=== PATIENT | female | born 1960 | race Caucasian/White ===

== ENCOUNTER → 2016-07-31 | Outpatient (CLI) | payer OTHER ==
[~2016-07-31] MED LIST: DICL50TA4 PO; THYR15TA PO
--- OUTSIDE RECORDS SUMMARY | 2016-07-31 12:24 | XMS REPORT | Continuity of Care Document ---
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 Visit Date/Time Discharge Status Pt. Type Provider Facility Loc./Unit Complaint [id number] 12/24/2013 13:19:00 2013 23:59:59 CLS Outpatient KOLTON BALLARD MD [facility] RAD [id number] 04/21/2013 09:32:00 2012 23:59:59 CLS Outpatient BEINTA NARANJO MD [facility] RAD [id number] 04/16/2013 07:33:00 2012 11:15:00 DIS Outpatient BENITA NARANJO MD [facility] [id number] 04/15/2013 07:16:00 2012 23:59:59 CLS Outpatient [id number] 10/25/2015 11:53:00 ACT Outpatient JON FAITH [facility] [id number] 10/23/2015 07:44:00 Document Registration
--- NOTE | 2016-07-31 13:20 | Diagnostic Imaging Report ---
CHEST PA/LAT (2 VIEW) Indication: Chest pain Comparison: 11/01/2008 Findings: No focal pneumonic consolidation, pleural effusion or pneumothorax. Normal heart size and pulmonary vasculature. Impression: No acute cardiopulmonary process. Dictated by: Dictated on workstation # [id number]
== END ==
LOC: RAD 12:21
PROVIDERS: ATTEND Internal Medicine
DX: R07.9 Chest pain, unspecified (principal)
CPT/HCPCS: 71020

== ENCOUNTER 2016-08-03 20:00 | Emergency (ER) | payer OTHER ==
[~2016-08-03] VITALS: Ht 167.6 cm; Wt 61.2 kg
[~2016-08-03 20:00] MED LIST changes: -DICL50TA4 PO
--- OUTSIDE RECORDS SUMMARY | 2016-08-03 20:06 | XMS REPORT | Continuity of Care Document ---
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 Visit Date/Time Discharge Status Pt. Type Provider Facility Loc./Unit Complaint [id number] 12/24/2013 13:19:00 2013 23:59:59 CLS Outpatient KOLTON BALLARD MD [facility] RAD [id number] 04/21/2013 09:32:00 2012 23:59:59 CLS Outpatient BENITA NARANJO MD [facility] RAD [id number] 04/16/2013 07:33:00 2012 11:15:00 DIS Outpatient BENITA NARANJO MD [facility] [id number] 04/15/2013 07:16:00 2012 23:59:59 CLS Outpatient [id number] 07/31/2016 12:21:00 ACT Outpatient LIBBY FAITH DO [facility] RAD R07.9 [id number] 10/25/2015 11:53:00 ACT Outpatient JON FAITH [facility] RAD THYROMEGALY E01.10 [id number] 10/23/2015 07:44:00 Document Registration
--- NOTE | 2016-08-03 20:13 | ED Chest Pain ---
General Chief Complaint: Chest Pain Stated Complaint: CHEST PAIN Source: patient, RN notes reviewed Exam Limitations: no limitations History of Present Illness Time seen by provider: 20:13 Initial Comments Intermittent episodes of substernal chest pain that radiates to her left shoulder x 1 week. Saw PCP regarding episodes and had an EKG and CXR done but never heard anything back regarding either. Denies any SOA, N/V, or diaphoresis. Does describe palpitations. Timing/Duration: 1 week, intermittent Severity/Quality: moderate, aching Location: substernal Radiation: shoulders (left) Activities at Onset: none Prior CP/Workup: no prior cardiac workup Modifying Factors: improves with other (none) ASA po COMMERCIAL PARTS PROFESSIONAL: No NTG SL COMMERCIAL PARTS PROFESSIONAL: No Associated Symptoms: denies symptoms Allergies and Home Medications Allergies Coded Allergies: No Known Drug Allergies (Verified , 11/02/08) Home Medications Diclofenac Potassium 50 Mg Tablet #30 50 MG PO Q8H PRN PRN chest pain Prescribed by: LIBBY ALAS on 08/03/16 8802 Thyroid,Pork 15 Mg Tablet 15 MG PO DAILY (Reported) Review of Systems Constitutional: see HPI Cardiovascular: See HPI Chest Pain Palpitations All Other Systems Reviewed Negative Unless Noted: Yes (Negative excepted noted.) Past Drfqall-Paukyr-Csiqrd Hx Respiratory Hx Respiratory Disorders: No Cardiovascular Hx Cardiac Disorders: No Gastrointestinal Hx Gastrointestinal Disorders: No Musculoskeletal Hx Musculoskeletal Disorders: No Endocrine Hx Endocrine Disorders: Yes Physical Exam Vital Signs Capillary Refill : General Appearance: WD/WN Anxious HEENT: Normal ENT Inspection Neck: Normal Inspection Respiratory: Lungs Clear No Respiratory Distress Cardiovascular: Tachycardia Other ((+) tenderness c/ palpation over the patient's ACW. Findings are consistent c/ Costochondritis.) Rectal: Deferred Neurologic/Psychiatric: Alert Oriented x3 No Motor/Sensory Deficits Other ( anxious/tearful) Skin: Warm/Dry Progress/Results/Core Measures Results/Orders Lab Results Laboratory Tests Test 08/03/16 20:00 08/03/16 20:35 Range/Units Alanine Aminotransferase (ALT/SGPT) 17 0-55 U/L Albumin 3.7 3.2-4.5 G/DL Alkaline Phosphatase 57 40-136 U/L Anion Gap 12 5-14 MMOL/L Aspartate Amino Transf (AST/SGOT) 25 5-34 U/L B-Type Natriuretic Peptide 41.9 <100.0 PG/ML BUN/Creatinine Ratio 19 Basophils # (Auto) 0.0 0.0-0.1 10^3/uL Basophils (%) (Auto) 0 0-10 % Blood Urea Nitrogen 14 7-18 MG/DL Calcium Level 8.2 L 8.5-10.1 MG/DL Carbon Dioxide Level 19 L 21-32 MMOL/L Chloride Level 108 H 98-107 MMOL/L Creatinine 0.72 0.60-1.30 MG/DL D-Dimer 1.10 H 0.00-0.49 UG/ML Eosinophils # (Auto) 0.3 0.0-0.3 10^3/uL Eosinophils (%) (Auto) 3 0-10 % Estimat Glomerular Filtration Rate > 60 Glucose Level 85 70-105 MG/DL Hematocrit 38 35-52 % Hemoglobin 12.4 11.5-16.0 G/DL Lipase 29 8-78 U/L Lymphocytes # (Auto) 3.6 1.0-4.0 X 10^3 Lymphocytes (%) (Auto) 35 12-44 % Magnesium Level 2.4 1.8-2.4 MG/DL Mean Corpuscular Hemoglobin 31 25-34 PG Mean Corpuscular Hemoglobin Concent 33 32-36 G/DL Mean Corpuscular Volume 93 80-99 FL Mean Platelet Volume 11.4 H 7.4-10.4 FL Monocytes # (Auto) 1.0 0.0-1.0 X 10^3 Monocytes (%) (Auto) 10 0-12 % Neutrophils # (Auto) 5.4 1.8-7.8 X 10^3 Neutrophils (%) (Auto) 53 42-75 % Platelet Count 335 130-400 10^3/uL Potassium Level 3.4 L 3.6-5.0 MMOL/L Red Blood Count 4.06 L 4.35-5.85 10^6/uL Red Cell Distribution Width 12.5 10.0-14.5 % Sodium Level 139 135-145 MMOL/L Thyroid Stimulating Hormone (TSH) 2.13 0.35-4.94 UIU/ML Total Bilirubin 0.4 0.1-1.0 MG/DL Total Protein 7.0 6.4-8.2 G/DL Troponin I < 0.30 <0.30 NG/ML White Blood Count 10.3 4.3-11.0 10^3/uL Ur Tricyclic Antidepressants Screen NEGATIVE NEGATIVE Urine Amphetamines Screen NEGATIVE NEGATIVE Urine Bacteria FEW H /HPF Urine Barbiturates Screen NEGATIVE NEGATIVE Urine Benzodiazepines Screen NEGATIVE NEGATIVE Urine Bilirubin NEGATIVE NEGATIVE Urine Cannabinoids Screen NEGATIVE NEGATIVE Urine Casts NONE /LPF Urine Clarity VERY CLOUDY H Urine Cocaine Screen NEGATIVE NEGATIVE Urine Color YELLOW Urine Crystals NONE /LPF Urine Culture Indicated NO Urine Glucose (UA) NEGATIVE NEGATIVE Urine Ketones 3+ H NEGATIVE Urine Leukocyte Esterase NEGATIVE NEGATIVE Urine Methadone Screen NEGATIVE NEGATIVE Urine Methamphetamines Screen NEGATIVE NEGATIVE Urine Mucus NEGATIVE /LPF Urine Nitrite NEGATIVE NEGATIVE Urine Opiates Screen NEGATIVE NEGATIVE Urine Oxycodone Screen NEGATIVE NEGATIVE Urine Phencyclidine Screen NEGATIVE NEGATIVE Urine Propoxyphene Screen NEGATIVE NEGATIVE Urine Protein 2+ H NEGATIVE Urine RBC >100 H /HPF Urine RBC (Auto) 5+ H NEGATIVE Urine Specific [place] 1.020 1.016-1.022 Urine Squamous Epithelial Cells 0-2 /HPF Urine Urobilinogen NORMAL NORMAL MG/DL Urine WBC RARE /HPF Urine pH 6 5-9 My Orders Orders-LIBBY ALAS DO Saline Lock/Iv-Start (08/03/16 20:13) Ekg Tracing (08/03/16 20:13) BNP (08/03/16 20:13) Cbc With Automated Diff (08/03/16 20:13) Comprehensive Metabolic Panel (08/03/16 20:13) Fibrin Degradation Products (08/03/16 20:13) Drug Screen Stat (Urine) (08/03/16 20:13) Lipase (08/03/16 20:13) Magnesium (08/03/16 20:13) Troponin I (08/03/16 20:13) Ua Culture If Indicated (08/03/16 20:13) Chest 1 View, Ap/Pa Only (08/03/16 20:13) Aspirin Chewable Tablet (Baby Aspirin Ch (08/03/16 20:15) Thyroid Stimulating Hormone (08/03/16 20:16) Ct Angio Chest W (08/03/16 21:19) Iohexol Injection (Omnipaque 350 Mg/Ml 1 (08/03/16 21:30) Ns (Ivpb) (Sodium Chloride 0.9% Ivpb Bag (08/03/16 21:30) Dexamethasone Pf Injection (Decadron Pf (08/03/16 23:00) Ketorolac Injection (Toradol Injection) (08/03/16 23:00) Iv Push Disposal Operator Ed (08/03/16 ) Medications Given in ED Vital Signs/I&O ECG Initial ECG Impression Date: Aug 03, 2016 Initial ECG Impression Time: 20:12 Initial ECG Rate: 90 Initial ECG Rhythm: Normal Sinus Initial ECG Intervals: Normal Initial ECG Impression: Normal Initial ECG Comparisson: No Previous ECG Available Diagnostic Imaging Diagonstic Imaging: Xray, CT Plain Films/CT/US/NM/MRI: chest (nothing acute) Departure Impression Impression: Primary Impression: Anterior chest wall pain Additional Impression: Costochondritis, acute Disposition: HOME, SELF-CARE Condition: Stable Departure-Patient Inst. Decision time for Depature: 22:55 Referrals: LIBBY FAITH DO (PCP/Family) Primary Care Physician Patient Instructions: Costochondritis (DC) Scripts Diclofenac Potassium 50 Mg [id number] Mg PO Q8H PRN chest pain #30 TAB Ref 0 Prov:LIBBY ALAS DO 08/03/16 LIBBY ALAS DO Aug 03, 2016 20:13 Initial ECG Rhythm: Normal Sinus Initial ECG Intervals: Normal Initial ECG Impression: Normal Initial ECG Comparisson: No Previous ECG Available Departure Impression Impression: Primary Impression: Anterior chest wall pain Additional Impression: Costochondritis, acute Disposition: HOME, SELF-CARE Condition: Stable Departure-Patient Inst. Decision time for Depature: 22:55 Referrals: LIBBY FAITH DO (PCP/Family) Primary Care Physician Patient Instructions: Costochondritis (DC) Scripts Diclofenac Potassium 50 Mg [id number] Mg PO Q8H PRN chest pain #30 TAB Ref 0 Prov:LIBBY ALAS DO 08/03/16 LIBBY ALAS DO Aug 03, 2016 20:13
[2016-08-03] MEDS ORDERED: ASPIRIN 81 MG CHEW (CHILDREN'S ASA) PO ONE (20:15)
[2016-08-03 20:42] LABS: BASOPHILS % (AUTO) 0 % (0-10); EOSINOPHILS # (AUTO) 0.3 10^3/uL (0.0-0.3); EOSINOPHILS % (AUTO) 3 % (0-10); LYMPHOCYTES # (AUTO) 3.6 X 10^3 (1.0-4.0); LYMPHOCYTES % (AUTO) 35 % (12-44); MEAN CORPUSCULAR HEMOGLOBIN 31 PG (25-34); MEAN CORPUSCULAR HGB CONC 33 G/DL (32-36); MEAN CORPUSCULAR VOLUME 93 FL (80-99); MEAN PLATELET VOLUME 11.4 FL (7.4-10.4); MONOCYTES % (AUTO) 10 % (0-12); NEUTROPHILS # (AUTO) 5.4 X 10^3 (1.8-7.8); NEUTROPHILS % (AUTO) 53 % (42-75); PLATELET COUNT 335 10^3/uL (130-400); RED BLOOD COUNT 4.06 10^6/uL (4.35-5.85); RED CELL DISTRIBUTION WIDTH 12.5 % (10.0-14.5); WHITE BLOOD COUNT 10.3 10^3/uL (4.3-11.0)
[2016-08-03 20:42] LABS: BILIRUBIN,URINE NEGATIVE (NEGATIVE); KETONES,URINE 3+ (NEGATIVE); LEUKOCYTE ESTERASE ,URINE NEGATIVE (NEGATIVE); NITRITE,URINE NEGATIVE (NEGATIVE); PH,URINE 6 (5-9); PROTEIN,URINE 2+ (NEGATIVE); UROBILINOGEN,URINE NORMAL (NORMAL)
[2016-08-03 20:52] LABS: SQUAMOUS EPITHELIAL CELL,UR 0-2 /HPF; WBC,URINE RARE /HPF
[2016-08-03 20:54] LABS: ALANINE AMINOTRANSFERASE 17 U/L (0-55); ALBUMIN 3.7 G/DL (3.2-4.5); ANION GAP 12 MMOL/L (5-14); ASPARTATE AMINO TRANSFERASE 25 U/L (5-34); BILIRUBIN,TOTAL 0.4 MG/DL (0.1-1.0); BLOOD UREA NITROGEN 14 MG/DL (7-18); BUN/CREATININE RATIO 19; CALCIUM 8.2 MG/DL (8.5-10.1); CARBON DIOXIDE 19 MMOL/L (21-32); CHLORIDE 108 MMOL/L (98-107); CREATININE SERUM 0.72 MG/DL (0.60-1.30); GFR ESTIMATED > 60; GLUCOSE 85 MG/DL (70-105); LIPASE 29 U/L (8-78); MAGNESIUM 2.4 MG/DL (1.8-2.4); POTASSIUM 3.4 MMOL/L (3.6-5.0); SODIUM 139 MMOL/L (135-145)
--- NOTE | 2016-08-03 21:06 | Diagnostic Imaging Report ---
INDICATION: Chest pain Frontal chest obtained at 8:45 p.m. Heart and mediastinal silhouette are normal in appearance. The lungs are clear. There is no pneumothorax or pleural fluid. IMPRESSION: Negative chest. Dictated by: Dictated on workstation # [id number]
[2016-08-03] MEDS ORDERED: IOHEXOL 350 MG/ML 150 ML (OMNIPAQUE 350) VIAL IV ONE (21:30)
[2016-08-03] MEDS ORDERED: NS 100 ML (IVPB) BAG IV ONE (21:30)
[2016-08-03 21:31] LABS: THYROID STIMULATING HORMONE 2.13 UIU/ML (0.35-4.94); TROPONIN I < 0.30 NG/ML (<0.30)
[2016-08-03] MEDS ORDERED: DICL50TA4 PO (22:56)
[2016-08-03] MEDS ORDERED: DEXAMETHASONE PF 10 MG/ML (DECADRON) VIAL IV ONE (23:00)
[2016-08-03] MEDS ORDERED: KETOROLAC 30 MG/ML VIAL IVP ONE (23:00)
[2016-08-03 23:14] VITALS: BP 136/74
--- NOTE | 2016-08-04 07:48 | Diagnostic Imaging Report ---
PROCEDURE: CT angiography of the chest with contrast. TECHNIQUE: Multiple contiguous axial images were obtained through the chest after uneventful bolus administration of intravenous contrast. Reconstructed CTA MIP acquisitions were also performed. INDICATION: Chest pain and pressure. FINDINGS: The heart size is normal. There is no pleural or pericardial fluid. There is no pneumothorax. There is no pathologically enlarged adenopathy in the chest. The pulmonary vascularity is normal in caliber without evidence of dissection. There are no filling defects seen within the pulmonary arteries to suggest pulmonary embolism. There is minimal scar or atelectasis in lung bases. The visualized intraabdominal structures are unremarkable. There are mild degenerative changes in the spine. IMPRESSION: No acute abnormality of the chest. Specifically, there is no evidence of pulmonary embolism or aortic dissection. Minimal scarring or atelectasis in lung bases bilaterally. Also, there is also a few tiny noncalcified nodular densities measuring 2-3 mm. This likely reflects granulomatous disease although early neoplasm cannot be entirely excluded. Recommend short interval followup CT in 2-3 months to insure stability. Dictated by: Dictated on workstation # [id number]
== END 2016-08-03 23:14 | disposition home or self-care (01) ==
LOC: EDUNIT# 20:00 → ER 20:02
DX: M94.0 Chondrocostal junction syndrome [Tietze] (principal)
CPT/HCPCS: 36415; 71010; 71275; 80053; 80306; 81000; 83690; 83735; 83880; 84443; 84484; 85025; 85379; 93005; 96374; 96375

== ENCOUNTER → 2016-08-09 | Outpatient (CLI) | payer OTHER ==
[~2016-08-09] MED LIST changes: +DICL50TA4 PO
--- OUTSIDE RECORDS SUMMARY | 2016-08-09 07:11 | XMS REPORT | Continuity of Care Document ---
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 10/23/2015 ELIO RUIZ, KOLTON Kunz Ot 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.9 UTERINE LEIOMYOMA NOS 10/26/2015 JON FAITH MECHATRONICS TECHNOLOGIST Ot 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 10/26/2015 JON FAITH MECHATRONICS TECHNOLOGIST Ot 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 11/09/2015 JON FAITH MECHATRONICS TECHNOLOGIST Ot 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 07/31/2016 JON FAITH MECHATRONICS TECHNOLOGIST Ot 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 08/01/2016 LIBBY FAITH DO Ot R07.9 CHEST PAIN, UNSPECIFIED 08/03/2016 JON FAITH MECHATRONICS TECHNOLOGIST Ot 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 08/03/2016 LIBBY FAITH DO Ot R07.9 CHEST PAIN, UNSPECIFIED 08/05/2016 LIBBY ALAS DO Ot M94.0 CHONDROCOSTAL JUNCTION SYNDROME [TIETZE] 08/05/2016 LIBBY ALAS DO Ot R07.89 OTHER CHEST PAIN 08/06/2016 LIBBY ALAS DO Ot M94.0 CHONDROCOSTAL JUNCTION SYNDROME [TIETZE] 08/06/2016 LIBBY ALAS DO Ot R07.89 OTHER CHEST PAIN Procedures Results Test Result Range Complete blood count (CBC) with automated white blood cell (WBC) differential - 08/03/16 20:00 Blood leukocytes automated count (number/volume) 10.3 10*3/ uL 4.3-11.0 Blood erythrocytes automated count (number/volume) 4.06 10*6 /uL 4.35-5.85 Venous blood hemoglobin measurement (mass/volume) 12.4 g/dL 11.5-16.0 Blood hematocrit (volume fraction) 38 % 35-52 Automated erythrocyte mean corpuscular volume 93 [foz_us] 80-99 Automated erythrocyte mean corpuscular hemoglobin (mass per erythrocyte) 31 pg 25-34 Automated erythrocyte mean corpuscular hemoglobin concentration measurement ( mass/volume) 33 g/dL 32-36 Automated erythrocyte distribution width ratio 12.5 % 10.0-14.5 Automated blood platelet count (count/volume) 335 10*3/uL 130-400 Automated blood platelet mean volume measurement 11.4 [foz_ us] 7.4-10.4 Automated blood neutrophils/100 leukocytes 53 % 42-75 Automated blood lymphocytes/100 leukocytes 35 % 12-44 Blood monocytes/100 leukocytes 10 % 0-12 Automated blood eosinophils/100 leukocytes 3 % 0-10 Automated blood basophils/100 leukocytes 0 % 0-10 Blood neutrophils automated count (number/volume) 5.4 10*3 1.8-7.8 Blood lymphocytes automated count (number/volume) 3.6 10*3 1.0-4.0 Blood monocytes automated count (number/volume) 1.0 10*3 0.0-1.0 Automated eosinophil count 0.3 10*3/uL 0.0-0.3 Automated blood basophil count (count/volume) 0.0 10*3/uL 0.0-0.1 Fibrin D-dimer FEU measurement in platelet poor plasma (mass/volume) - 20:00 Fibrin D-dimer FEU measurement in platelet poor plasma (mass/volume) 1.10 ug/mL 0.00-0.49 Comprehensive metabolic panel - 08/03/16 20:00 Serum or plasma sodium measurement (moles/volume) 139 mmol/ L 135-145 Serum or plasma potassium measurement (moles/volume) 3.4 mmol/L 3.6-5.0 Serum or plasma chloride measurement (moles/volume) 108 mmol /L 98-107 Carbon dioxide 19 mmol/L 21-32 Serum or plasma anion gap determination (moles/volume) 12 mmol/L 5-14 Serum or plasma urea nitrogen measurement (mass/volume) 14 mg/dL 7-18 Serum or plasma creatinine measurement (mass/volume) 0.72 mg /dL 0.60-1.30 Serum or plasma urea nitrogen/creatinine mass ratio 19 NRG Serum or plasma creatinine measurement with calculation of estimated glomerular filtration rate > NRG Serum or plasma glucose measurement (mass/volume) 85 mg/dL 70-105 Serum or plasma calcium measurement (mass/volume) 8.2 mg/dL 8.5-10.1 Serum or plasma total bilirubin measurement (mass/volume) 0.4 mg/dL 0.1-1.0 Serum or plasma alkaline phosphatase measurement (enzymatic activity/volume) 57 U/L 40-136 Serum or plasma aspartate aminotransferase measurement (enzymatic activity/ volume) 25 U/L 5-34 Serum or plasma alanine aminotransferase measurement (enzymatic activity/volume ) 17 U/L 0-55 Serum or plasma protein measurement (mass/volume) 7.0 g/dL 6.4-8.2 Serum or plasma albumin measurement (mass/volume) 3.7 g/dL 3.2-4.5 Magnesium - 08/03/16 20:00 Magnesium 2.4 mg/dL 1.8-2.4 Serum or plasma troponin i.cardiac measurement (mass/volume) - 08/03/16 20:00 Serum or plasma troponin i.cardiac measurement (mass/volume) < ng/mL <0.30 Serum or plasma lithium measurement (moles/volume) - 08/03/16 20:00 BNP level 41.9 pg/mL <100.0 Lipase - 08/03/16 20:00 Lipase 29 U/L 8-78 THYROID STIMULATING HORMONE - 08/03/16 20:00 THYROID STIMULATING HORMONE 2.13 u[iU]/mL 0.35-4.94 Complete urinalysis with reflex to culture - 08/03/16 20:35 Urine color determination YELLOW NRG Urine clarity determination VERY CLOUDY NRG Urine pH measurement by test strip 6 5- 9 Specific gravity of urine by test strip 1.020 1.016-1.022 Urine protein assay by test strip, semi-quantitative 2+ NEGATIVE Urine glucose detection by automated test strip NEGATIVE NEGATIVE Erythrocytes detection in urine sediment by light microscopy 5+ NEGATIVE Urine ketones detection by automated test strip 3+ NEGATIVE Urine nitrite detection by test strip NEGATIVE NEGATIVE Urine total bilirubin detection by test strip NEGATIVE NEGATIVE Urine urobilinogen measurement by automated test strip (mass/volume) NORMAL NORMAL Urine leukocyte esterase detection by dipstick NEGATIVE NEGATIVE Automated urine sediment erythrocyte count by microscopy (number/high power field) > [HPF] NRG Automated urine sediment leukocyte count by microscopy (number/high power field ) RARE NRG Bacteria detection in urine sediment by light microscopy FEW NRG Squamous epithelial cells detection in urine sediment by light microscopy 0-2 NRG Crystals detection in urine sediment by light microscopy NONE NRG Casts detection in urine sediment by light microscopy NONE NRG Mucus detection in urine sediment by light microscopy NEGATIVE NRG Complete urinalysis with reflex to culture NO NRG Urine drug screening test - 08/03/16 20:35 Urine phencyclidine detection by screening method NEGATIVE NEGATIVE Urine benzodiazepines detection by screening method NEGATIVE NEGATIVE Urine cocaine detection NEGATIVE NEGATIVE Urine amphetamines detection by screening method NEGATIVE NEGATIVE Urine methamphetamine detection by screening method NEGATIVE NEGATIVE Urine cannabinoids detection by screening method NEGATIVE NEGATIVE Urine opiates detection by screening method NEGATIVE NEGATIVE Urine barbiturates detection NEGATIVE NEGATIVE Screening urine tricyclic antidepressants detection NEGATIVE NEGATIVE Urine methadone detection by screening method NEGATIVE NEGATIVE Urine oxycodone detection NEGATIVE NEGATIVE Urine propoxyphene detection NEGATIVE NEGATIVE Encounters ACCT No. Visit Date/Time Discharge Status Pt. Type Provider Facility Loc./Unit Complaint [id number] 08/03/2016 20:02:00 2016 23:14:00 DIS Outpatient LIBBY ALAS DO [facility] ER CHEST PAIN [id number] 12/24/2013 13:19:00 2013 23:59:59 CLS Outpatient KOLTON BALLARD MD [facility] RAD [id number] 04/21/2013 09:32:00 2012 23:59:59 CLS Outpatient BENITA NARANJO MD [facility] RAD [id number] 04/16/2013 07:33:00 2012 11:15:00 DIS Outpatient BENITA NARANJO MD [facility] [id number] 04/15/2013 07:16:00 2012 23:59:59 CLS Outpatient [id number] 07/31/2016 12:21:00 ACT Outpatient LIBBY FAITH DO [facility] RAD R07.9 [id number] 10/25/2015 11:53:00 ACT Outpatient JON FAITH [facility] RAD THYROMEGALY E01.10 [id number] 10/23/2015 07:44:00 Document Registration
[2016-08-09] MEDS: CATHETER FLUSH 10 ML SYR IV PRN (07:25)
[2016-08-09 08:05] VITALS: BP 153/96
[2016-08-09 08:09] VITALS: BP 174/87
--- NOTE | 2016-08-09 13:53 | STRESS TEST ---
PROCEDURE PHYSICIAN: TAWNYA LAROSE DATE OF PROCEDURE: 08/09/2016 NUCLEAR MYOVIEW REPORT: REFERRING PHYSICIAN: Dr. Mcdonnell IN SUMMARY: The patient was injected with 10.84 mCi of technetium 99 Myoview and the resting images were obtained. Then the patient received 32.5 mCi of technetium 99 Myoview and the stress images were obtained. The resting and stress images were compared and reviewed in the short axis, horizontal long axis, and vertical long axis views. The stress test was supervised by Dr. Mcdonnell. Review of the images showed no significant ischemia or infarction on SPECT images. SSS is 0. TID value 0.85. On the gated images, the left ventricle appeared to be normal size with normal contractility. Calculated ejection fraction 64%. IN CONCLUSION: 1. The patient tolerated Lexiscan well. 2. No ischemia or infarction on SPECT images. 3. Normal left ventricular size with normal contractility. Calculated ejection fraction 64%. Job ID: [id number] Dictated Date: 08/09/2016 11:19:34 Aged Or Disabled Carer Date: 08/09/2016 13:50:49 / suzie
== END ==
LOC: CARD 07:07
PROVIDERS: ATTEND Internal Medicine
DX: R07.9 Chest pain, unspecified (principal)
CPT/HCPCS: 78452; 93017

== ENCOUNTER → 2018-04-08 | Outpatient (CLI) | payer OTHER ==
[~2018-04-08] MED LIST changes: +GADOBUTROL 7.5 MMOL/7.5 ML (GADAVIST) VIAL IV ONE
--- NOTE | 2018-04-08 11:11 | Diagnostic Imaging Report ---
PROCEDURE: MR imaging of the brain with and without contrast. TECHNIQUE: Multiplanar, multisequence MR imaging of the brain was performed with and without contrast. INDICATION: Headache and dizziness and eye pain. COMPARISON: Correlation is made with prior MRI of the brain from 11/22/2008. FINDINGS: Ventricular size and sulcal pattern are stable. A small white matter focus adjacent to the right frontal horn appears stable. There is an additional tiny focus slightly anterolateral to this focus measuring 3 mm. There are several additional subcortical white matter signal abnormalities present on today's study. Findings are likely on the basis of chronic microvascular ischemia. There is no diffusion restriction. Normal expected flow-voids within the carotid siphons are seen. No acute intra-axial or extra-axial hemorrhage is seen. No abnormal enhancement is seen following contrast administration. Corpus callosum is unremarkable. The sella and parasellar structures are unremarkable. IMPRESSION: There has been some mild increase in subcortical and periventricular white matter foci since examination from 9 years earlier. This is likely on the basis of chronic microvascular ischemia. The remainder of the study is unremarkable. No acute abnormalities detected. Dictated by: Dictated on workstation # [id number]
== END ==
LOC: RAD 09:17
PROVIDERS: ATTEND Nurse Practitioner Family
DX: H53.9 Unspecified visual disturbance (principal); R42 Dizziness and giddiness; R51 Headache; R90.82 White matter disease, unspecified
CPT/HCPCS: 70553

== ENCOUNTER 2020-08-22 13:37 | Outpatient (CLI) | payer OTHER ==
[~2020-08-22] VITALS: Ht 167.7 cm; Wt 59.5 kg
[~2020-08-22 13:37] MED LIST changes: -GADOBUTROL 7.5 MMOL/7.5 ML (GADAVIST) VIAL IV ONE
[2020-08-22 13:55] VITALS: BP 130/96
[2020-08-22] MEDS ORDERED: cefTRIAXone 1,000 MG IV (ROCEPHIN) VIAL ONE (14:04)
[2020-08-22] MEDS ORDERED: LACTATED RINGERS 2,000 ML IV ONE (14:04)
[2020-08-22] MEDS ORDERED: WATER (STERILE) FOR INJECTION 10 ML ONE (14:04)
[2020-08-22] MEDS ORDERED: ONDANSETRON 4 MG/2 ML (SDV) Z0FRAN ONE (14:17)
[2020-08-22] MEDS ORDERED: LACTATED RINGERS 2,000 ML IV SCH (14:30)
[2020-08-22] MEDS ORDERED: ONDANSETRON 4 MG/2 ML (SDV) Z0FRAN IVP PRN (14:30)
[2020-08-22] MEDS ORDERED: CATHETER FLUSH 10 ML SYR IV PRN (14:30)
[2020-08-22] MEDS ORDERED: cefTRIAXone 1,000 MG/SWFI 10 ML IV PUSH IV ONE ×2 (14:30)
--- NOTE | 2020-08-22 16:46 | Diagnostic Imaging Report ---
PROCEDURE: CT sinuses without contrast TECHNIQUE: Multiple contiguous axial images were obtained through the sinuses without the use of intravenous contrast. Coronal and sagittal reformations were then performed. Auto Exposure Controls were utilized during the CT exam to meet ALARA standards for radiation dose reduction. INDICATION: Sphenoidal sinusitis and tinnitus with posterior headache. FINDINGS: There is rightward deviation and spurring of the nasal septum. Ostiomeatal complexes appear patent, bilaterally. There is no paranasal sinus air-fluid level. No significant mural thickening is identified. Sphenoid sinuses are clear, bilaterally. Mastoid air cells and middle ear cavities are also unremarkable. 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 IMPRESSION: No evidence of sinusitis. 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 Dictated by: Dictated on workstation # [id number]
== END 2020-08-22 16:25 | disposition home or self-care (01) ==
LOC: SDC 13:37
PROVIDERS: ATTEND Nurse Practitioner Family
DX: J32.3 Chronic sphenoidal sinusitis (principal); M26.642 Arthritis of left temporomandibular joint; E86.0 Dehydration; H93.13 Tinnitus, bilateral
CPT/HCPCS: 70486; 96360; 96361; 96374; 96375

== ENCOUNTER 2021-06-21 11:16 | Outpatient (CLI) | payer BC ==
[~2021-06-21] VITALS: Ht 167.6 cm; Wt 56.7 kg
[2021-06-21 11:22] VITALS: BP 140/87
[2021-06-21] MEDS ORDERED: ACETAMINOPHEN 500 MG TAB (TYLENOL) PO PRN (11:30)
[2021-06-21] MEDS ORDERED: EPINEPHrine INJECTION 1 MG/ML AMP IM PRN (11:30)
[2021-06-21] MEDS ORDERED: ONDANSETRON 4 MG/2 ML (SDV) Z0FRAN IV PRN (11:30)
[2021-06-21] MEDS ORDERED: CASIRIVIMAB/IMDEVIMAB 1,200 MG in NS (IVPB) 50 ML IV ONE (11:30)
[2021-06-21] MEDS ORDERED: diphenhydrAMINE 50 MG/ML INJ (BENADRYL) IV PRN (11:30)
[2021-06-21 12:22] VITALS: BP 134/76
== END 2021-06-21 12:24 | disposition home or self-care (01) ==
LOC: INFUSION 11:16
PROVIDERS: ATTEND Nurse Practitioner Family
DX: U07.1 COVID-19 (principal)

== ENCOUNTER → 2021-06-27 | Outpatient (CLI) | payer OTHER, BC | LOC: LABNPT 18:43 | DX: Z01.89 Encounter for other specified special examinations (principal) | CPT/HCPCS: 85379 ==